=== PATIENT | male | born 1975 | race Hispanic/Latino ===

== ENCOUNTER 2019-11-15 07:10 | Emergency (ER) | payer OTHER ==
[~2019-11-15 07:10] MED LIST: LEVO500T2 PO; METR500T PO
[2019-11-15] MEDS ORDERED: ONDANSETRON HCL 4 MG/2 ML VIAL ONE (07:48)
[2019-11-15] MEDS ORDERED: KETOROLAC TROMETHAMINE 30MG/ML ONE (07:48)
[2019-11-15] MEDS ORDERED: SODIUM CHLORIDE 0.9% 1000ML 1,000 ML IV ONE (07:49)
[2019-11-15] MEDS ORDERED: MORPHINE SULFATE 4 MG/1ML SYG ONE (07:49)
[2019-11-15 07:50] LABS: BASOPHILS % (AUTO) 0.3 % (0.0-5.0); EOSINOPHILS % (AUTO) 0.8 % (0.0-8.0); HEMATOCRIT 50.4 % (42-54); LYMPHOCYTES % (AUTO) 16.5 % (21.0-51.0); MEAN CORPUSCULAR HEMOGLOBIN 28.3 pg (27.0-33.0); MEAN CORPUSCULAR HGB CONC 33.3 g/dL (32.0-36.0); NEUTROPHILS % (AUTO) 70.8 % (40.0-77.0); PLATELET COUNT (AUTO) 258 K/uL (130-400); RED BLOOD CELL COUNT(AUTO) 5.93 MIL/uL (4.50-6.20); RED CELL DISTRIBUTION WIDTH 13.4 % (11.0-15.5); WHITE BLOOD COUNT (AUTO) 15.8 K/uL (4.8-10.8)
[2019-11-15 07:52] LABS: APPEARANCE,URINE Clear (CLEAR); BILIRUBIN,URINE Negative (NEGATIVE); COLOR,URINE Yellow (YELLOW); GLUCOSE, URINE (UA) Negative (NEGATIVE); KETONES,URINE Trace mg/dL (NEGATIVE); LEUKOCYTE ESTERASE ,URINE Trace (NEGATIVE); NITRATE,URINE Negative (NEGATIVE); OCCULT BLOOD,URINE Negative (NEGATIVE); PH,URINE 6.5 (5.0-8.0); PROTEIN,URINE Negative (NEGATIVE)
[2019-11-15 08:02] LABS: POTASSIUM 3.7 mmol/L (3.5-5.1); RBC,URINE 0-1 /HPF (0-1); WBC,URINE 0-1 /HPF (0-1)
[2019-11-15 08:03] LABS: BACTERIA,URINE None Seen /HPF (None Seen); SQUAMOUS EPITHELIAL CELL,UR 0-2 /HPF (0-2)
[2019-11-15 08:09] LABS: ALBUMIN 3.7 g/dL (3.5-5.0); BILIRUBIN,DIRECT 0.2 mg/dL (0.0-0.3); BILIRUBIN,TOTAL 0.9 mg/dL (0.2-1.0); INR 1.14 (0.85-1.15); PARTIAL THROMBOPLASTIN TIME 29.4 SEC (26.3-35.5); PROTHROMBIN TIME 11.9 SEC (9.6-11.6); TOTAL PROTEIN, SERUM 8.8 g/dL (6.0-8.3)
[2019-11-15] MEDS ORDERED: CEFTRIAXONE SODIUM 1 GM ONE (09:20)
[2019-11-15] MEDS ORDERED: SODIUM CHLORIDE 0.9% 50 ML IV ONE (09:21)
[2019-11-16] MEDS ORDERED: CIPR-245 PO (03:02)
[2019-11-16] MEDS ORDERED: ONDA-104 PO (03:02)
[2019-11-16] MEDS ORDERED: METR250T PO (03:02)
[2019-11-16] MEDS ORDERED: ACET1TAB12 PO (03:02)
== END 2019-11-15 11:00 | disposition home or self-care (01) ==
LOC: EDH 07:10
DX: K57.32 Diverticulitis of large intestine without perforation or abscess without bleeding (principal); E78.5 Hyperlipidemia, unspecified; Z90.49 Acquired absence of other specified parts of digestive tract; Z79.899 Other long term (current) drug therapy
CPT/HCPCS: 36415; 74176; 80048; 80076; 81001; 82550; 83690; 85025; 85610; 85730; 96374; 96375; 99285; J0696; J1885; J2270; J2405; J7030

== ENCOUNTER 2023-01-13 18:35 | Emergency (ER) | payer OTHER ==
[~2023-01-13] VITALS: Ht 177.8 cm; Wt 116.1 kg
[~2023-01-13 18:35] MED LIST changes: +ACET1TAB12 PO; -LEVO500T2 PO; -METR500T PO; +ONDA-104 PO
[2023-01-13] MEDS ORDERED: ONDANSETRON 4MG INJ IVP ONE (19:00)
[2023-01-13] MEDS ORDERED: ACETAMINOPHEN 325 MG TAB PO ONE (19:00)
[2023-01-13] MEDS ORDERED: PANTOPRAZOLE 40 MG/VIAL IVP ONE (19:00)
[2023-01-13 19:12] LABS: BASOPHILS % (AUTO) 0.3 % (0.0-5.0); EOSINOPHILS % (AUTO) 2.3 % (0.0-8.0); HEMATOCRIT 47.8 % (42-54); LYMPHOCYTES % (AUTO) 20.6 % (21.0-51.0); MEAN CORPUSCULAR HEMOGLOBIN 27.7 pg (27.0-33.0); MEAN CORPUSCULAR HGB CONC 33.1 g/dL (32.0-36.0); MEAN CORPUSCULAR VOLUME 83.7 fL (79-99); MONOCYTES % (AUTO) 7.2 % (3.0-13.0); NEUTROPHILS % (AUTO) 68.9 % (40.0-77.0); PLATELET COUNT (AUTO) 243 K/uL (130-400); RED BLOOD CELL COUNT(AUTO) 5.71 MIL/uL (4.50-6.20); RED CELL DISTRIBUTION WIDTH 13.8 % (11.0-15.5); WHITE BLOOD COUNT (AUTO) 14.9 K/uL (4.8-10.8)
[2023-01-13 19:19] LABS: POTASSIUM 3.8 mmol/L (3.5-5.1)
[2023-01-13 19:24] LABS: ALBUMIN 3.7 g/dL (3.5-5.0); TOTAL PROTEIN, SERUM 7.9 g/dL (6.0-8.3)
[2023-01-13 19:50] LABS: APPEARANCE,URINE CLEAR (CLEAR); BILIRUBIN,URINE NEGATIVE (NEGATIVE); COLOR,URINE LIGHT-YELLOW (YELLOW); GLUCOSE, URINE (UA) NEGATIVE (NEGATIVE); KETONES,URINE NEGATIVE (NEGATIVE); LEUKOCYTE ESTERASE ,URINE NEGATIVE Leu/uL (NEGATIVE); NITRATE,URINE NEGATIVE (NEGATIVE); OCCULT BLOOD,URINE NEGATIVE (NEGATIVE); PH,URINE 5.5 (5.0-8.0); PROTEIN,URINE NEGATIVE (NEGATIVE); UROBILINOGEN,URINE 0.2 mg/dL (0.2-1.0)
[2023-01-13 19:55] LABS: MUCUS,URINE RARE LPF (None Seen); RBC,URINE 0-1 /HPF (0-1); SQUAMOUS EPITHELIAL CELL,UR RARE /HPF (0-2); WBC,URINE 0-1 /HPF (0-1)
[2023-01-13] MEDS ORDERED: ZOSYN 3.375GM +NS 50ML IVPB ONE (20:30)
[2023-01-13] MEDS ORDERED: IBUP-2070 PO (20:43)
[2023-01-13] MEDS ORDERED: AMOX1TAB16 PO (20:43)
[2023-01-13 21:36] VITALS: BP 132/80
== END 2023-01-13 21:38 | disposition home or self-care (01) ==
LOC: EDH 18:35
DX: K57.32 Diverticulitis of large intestine without perforation or abscess without bleeding (principal); Z79.899 Other long term (current) drug therapy; Z90.49 Acquired absence of other specified parts of digestive tract
CPT/HCPCS: 99285; 74176; 96365; 96375; 80053; 83690; 85025; 87088; 81001; 36415; J2405; J2543; C9113